=== PATIENT | female | born 1975 ===

== ENCOUNTER 2017-03-15 08:49 | Day surgery (SDC) | payer OTHER ==
[2015-12-15 09:09] VITALS: BMI 32.3
[~2017-03-15 08:49] MED LIST: Acetaminophen-Codeine 300/30 mg Tab PO PRN; Dextrose 5%/0.45% NS 1,000 ML IV SCH
[2017-03-15] MEDS ORDERED: ceFAZolin IV 2 gm in Dextrose 1 GM/50 ML BAG IVPB ONE (09:57)
[2017-03-15] MEDS ORDERED: Propofol 10 mg/ml Inj (20 ML) ONE ×2 (09:59→10:16)
[2017-03-15] MEDS ORDERED: Lactated Ringer's 1,000 ML IV ONE (10:03)
[2017-03-15] MEDS ORDERED: HYDROmorphone 0.5 mg/0.5 ml ISec IVP PRN (10:48)
[2017-03-15 11:56] VITALS: BP 125/67; PULSE 65; RESP 18; TEMP 97.3; O2SAT 99
--- NOTE | 2017-03-15 14:23 | OP ---
PROCEDURE DATE: 03/15/2017 PREOPERATIVE DIAGNOSIS: Bilateral vocal cord polyps. POSTOPERATIVE DIAGNOSIS: Bilateral vocal cord polyps. PROCEDURE: Micro-direct laryngoscopy with removal of the vocal cord polyps. SURGEON: Silvio Corona MD DESCRIPTION OF PROCEDURE: The patient was brought into room, placed in the supine position and anesthesia was initiated through an ET tube. Shoulder roll was placed. Neck was extended. The patient was draped in the usual manner. Direct laryngoscope was inserted into the oral cavity and advanced to the oropharynx and hypopharynx. The base of tongue, vallecula, epiglottis, AE folds, false cords, true cords, piriform sinuses, arytenoids and pharyngeal gunderson were brought into view. This was done after a tooth guard was placed over the patient's upper teeth in order to protect them and removed at the end of the case. The vocal cords were noted to have polyps on both sides. The left vocal cord polyp was noted to be larger than the right. The left vocal cord polyp was brought into view using a direct laryngoscope, which was then suspended on the Sue twine reeling machine operator usual manner. Microscope was brought into place and used to view the left vocal cord polyp. Micro instruments were used to remove the left vocal cord polyp off the vocal cord as much mucosa as possible. Bleeding was controlled with time. The microscope was taken off vision. The direct laryngoscope was taken off suspension and removed. The scope was removed. The patient was taken off anesthesia and taken to recovery room in stable manner. Silvio Corona MD
== END 2017-03-15 13:10 | disposition home or self-care (01) ==
LOC: C.SDS 08:49
PROVIDERS: ATTEND Otolaryngology
DX: J38.1 Polyp of vocal cord and larynx (principal)
CPT/HCPCS: 31535; 88305; J0690; J1100; J2704; J3010; J7120

== ENCOUNTER 2017-07-23 06:38 | Day surgery (SDC) | payer OTHER ==
[2015-12-15 09:09] VITALS: BMI 32.3
[2017-07-23] MEDS ORDERED: ceFAZolin 1 GM in Sodium Chloride 0.9% 100 ML IVPB ONE (08:00)
[2017-07-23] MEDS ORDERED: Morphine 10 mg/5 ml Oral Soln PO PRN (08:12)
[2017-07-23] MEDS ORDERED: Dextrose 5%/0.45% NS 1,000 ML IV SCH (08:15)
[2017-07-23] MEDS ORDERED: Midazolam 2 MG/2 ML VIAL ONE (08:53)
[2017-07-23] MEDS ORDERED: Propofol 10 mg/ml Inj (20 ML) ONE (08:54)
[2017-07-23] MEDS ORDERED: Rocuronium 10 mg/ml (5 ml) ONE (08:57)
[2017-07-23] MEDS ORDERED: Neostigmine Methylsulfate 3mg/3ml Syringe IV ONE (09:22)
[2017-07-23] MEDS ORDERED: HYDROmorphone 0.5 mg/0.5 ml ISec IVP PRN (09:36)
[2017-07-23 11:29] VITALS: BP 103/67; PULSE 64; RESP 18; TEMP 97.8; O2SAT 97
--- NOTE | 2017-07-23 20:36 | OP ---
PROCEDURE DATE: 07/23/2017 PREOPERATIVE DIAGNOSIS: Right vocal cord erythroplakia. POSTOPERATIVE DIAGNOSIS: Right vocal cord erythroplakia. PROCEDURE: Micro-direct laryngoscopy with biopsy. SIGNIFICANT FINDINGS: Right vocal cord erythroplakia. DESCRIPTION OF PROCEDURE: The patient was brought into the room, placed in a supine position. Anesthesia was initiated through an ET tube. Shoulder roll was placed and neck extended. The patient was draped in the usual manner. Tooth guard was placed over the upper teeth in order to protect them and remained there for the entire case. Direct laryngoscope was inserted into the oral cavity, passed to the oropharynx and hypopharynx. The base of tongue, vallecula, epiglottis, AE folds, false cords, true cords, pyriform sinuses, arytenoids, and the pharyngeal gunderson were brought into view. Right vocal cord erythroplakia was noted and the direct laryngoscope was suspended and brought the right vocal cord erythroplakia was in view. Microscope was brought into the field in order to view the right vocal cord erythroplakia. It was noted to be in the middle third of the vocal cord. Biopsy was taken. Direct laryngoscope was taken off suspension and removed. The microscope was taken off position. The patient was taken off anesthesia and taken to recovery room in stable manner. Silvio Corona MD
== END 2017-07-23 12:07 | disposition home or self-care (01) ==
LOC: C.SDS 06:38
PROVIDERS: ATTEND Otolaryngology
DX: J38.3 Other diseases of vocal cords (principal)
CPT/HCPCS: 31536; 88305; J0690; J1100; J2001; J2250; J2405; J2704; J2710; J2765; J3010

== ENCOUNTER 2018-10-27 13:12 | Outpatient (CLI) | payer OTHER | END 2018-10-27 13:13 | disposition home or self-care (01) | LOC: C.MAMMO 13:12 | DX: N64.4 Mastodynia (principal) ==